=== PATIENT | male | born 1990 | race African-American/Black ===

== ENCOUNTER 2017-08-02 03:22 | Emergency (ER) | payer SELFPAY ==
[~2017-08-02] VITALS: Ht 185.4 cm; Wt 73.0 kg
[2017-08-02 03:22] VITALS: BP 121/75; PULSE 98; RESP 16; TEMP 100.4; O2SAT 98
[~2017-08-02 03:22] MED LIST: ALBU17I INH; PRED20 PO; ZITH250T PO
[2017-08-02] MEDS ORDERED: IBUPROFEN 800 MG TAB PO ONE (03:45)
--- NOTE | 2017-08-02 03:45 | PD ---
HPI Chief Complaint: ENT Complaint Time Seen by Provider: 03:30 Travel History International Travel<30 days: No Contact w/Intl Traveler<30days: No Traveled to known affect area: No History of Present Illness HPI Patient comes in for evaluation of sore throat that began yesterday morning. Patient states he has been taking NyQuil and Aleve for symptomatic relief last dose around 1300 yesterday. Patient's pain is worse with swallowing. Denies any radiation of pain. Describes pain as burning in nature. Denies any nausea , vomiting, diarrhea, chest pain, shortness of breath, loss or change in bowel or bladder, cough, or abdominal pain. 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 [facility] Past Medical History Asthma: Yes Diminished Hearing: No Immunizations Current: Yes Past Surgical History Surgical History: No Previous Surgery Social History Alcohol Use: No Tobacco Use: No Substance Use: No Allergies-Medications (Allergen,Severity, Reaction): Coded Allergies: shellfish derived (Unverified Allergy, Mild, 08/02/17) Reported Meds & Prescriptions Reported Meds & Active Scripts Active Amoxicillin 875 Mg Tab 875 Mg PO BID 10 Days Review of Systems Except as stated in HPI: all other systems reviewed are Neg Physical Exam Narrative GENERAL: Well-developed, well nourished, in no acute distress, and non-ill appearing. SKIN: Focused skin assessment warm and dry. HEAD: Atraumatic. Normocephalic. EYES: Pupils equal and round. EOMI. No scleral icterus. No injection or drainage. ENT: No nasal bleeding or discharge. Mucous membranes pink and moist. Tympanic membranes pearly olivas bilaterally. Posterior pharynx erythematous without exudate. Uvula is midline. Patient swallowing saliva and speaking in full sentences without difficulty. Tonsils are slightly swollen. NECK: Trachea midline. No cervical lymphadenopathy. Supple. No nuclear rigidity. CARDIOVASCULAR: Regular rate and rhythm. No murmur appreciated. RESPIRATORY: No accessory muscle use. No respiratory distress. Clear to auscultation. Breath sounds equal bilaterally. MUSCULOSKELETAL: No obvious deformities. No clubbing. No cyanosis. No edema. Full range of motion. NEUROLOGICAL: Awake and alert. No obvious cranial nerve deficits. Motor grossly within normal limits. Normal speech. PSYCHIATRIC: Appropriate mood and affect; insight and judgment normal. Data Data Last Documented VS Vital Signs Date Time Temp Pulse Resp B/P (MAP) Pulse Ox O2 Delivery O2 Flow Rate FiO2 08/02/17 03:22 100.4 98 16 121/75 (90) 98 Room Air Orders Orders Group A Rapid Strep Screen (08/02/17 03:34) Influenzae A/B Antigen (08/02/17 03:34) Ibuprofen (Motrin) (08/02/17 03:45) Strep Culture (Group A) (08/02/17 03:40) Ed Discharge Order (08/02/17 04:16) MDM Medical Decision Making Medical Screen Exam Complete: Yes Emergency Medical Condition: Yes Differential Diagnosis Strep pharyngitis, viral pharyngitis, influenza, tonsillitis, viral syndrome Narrative Course The patient is tolerating fluids and is well hydrated. No clinical evidence by history or evaluation to suspect meningitis and/or sepsis. There was no evidence to suggest peritonsillar abscess or retropharyngeal abscess. I discussed with the patient, diagnosis, plan of care and to follow up with the patients primary physician. The patient was given antibiotics. The patient was instructed to return if the worsens in anyway, especially if not tolerating fluids, increased pain or swelling, difficulty swallowing or breathing, or as needed. The patient agreed with plan. Patient in no obvious distress upon re-evaluation. All pertinent laboratory result(s) discussed with patient. Patient was asked if they wanted to speak to my attending, which the patient did not wish to do at this time. Any questions/ concerns in reference to patient diagnosis/condition discussed and clarified prior to patient's discharge. Reinforced sheer importance of close follow up with patient's primary physician or primary care clinic. Instructed patient to return to ED immediately, if symptoms return/worsen. Patient showed understanding of above instructions. Further instructions and recommendations were detailed in discharge paperwork. Patient ambulated without difficulty out of ED at discharge. Diagnosis Primary Impression: Tonsillitis Referrals: [facility] Patient Instructions: General Instructions, Tonsillitis (DC) Additional Instructions: Follow-up with your primary care physician in 3-5 days for reevaluation. Take all medication as prescribed. Use [id number] Tylenol and/or ibuprofen as needed for pain and/or fevers. Follow instructions on the packaging. Drink plenty of nonalcoholic and non-caffeinated fluids. Return to the emergency department if symptoms get worse. Med/Other Pt SpecificInfo: Prescription(s) given Scripts Amoxicillin (Amoxicillin) 875 Mg Tab 875 MG PO BID for Infection for 10 Days, #20 TAB 0 Refills Prov: Aisha Echevarria DO 08/02/17 Disposition: 01 DISCHARGE HOME Condition: Stable Salomon Jaramillo Aug 02, 2017 03:45
[2017-08-02] MEDS ORDERED: AMOX875T PO (04:16)
== END 2017-08-02 04:44 | disposition home or self-care (01) ==
LOC: NEPD 03:22
DX: J03.90 Acute tonsillitis, unspecified (principal); J45.909 Unspecified asthma, uncomplicated
CPT/HCPCS: 87081; 87804; 87880; 99284

== ENCOUNTER 2017-11-07 19:23 | Observation (INO) | payer OTHER ==
[~2017-11-07] VITALS: Ht 188 cm; Wt 75.0 kg
[~2017-11-07 19:23] MED LIST changes: -ALBU17I INH; +AMOX875T PO; -PRED20 PO; -ZITH250T PO
[2017-11-07 19:36] VITALS: BP 110/63; PULSE 123; RESP 18; TEMP 98.5; O2SAT 97
[2017-11-07 19:57] VITALS: O2SAT 97
[2017-11-07] MEDS ORDERED: methylPREDNISolone SOD SUCC 125 MG/2 ML VIAL IV PUSH ONE (20:00)
[2017-11-07] MEDS ORDERED: SODIUM CHLORIDE 0.9% FLUSH 10 ML FLUSH IVF PRN (20:00)
[2017-11-07] MEDS ORDERED: RESP: BUDESONIDE 0.5 MG/2 ML NEB NEB ONE (20:00)
[2017-11-07] MEDS: RESP: ALBUTEROL 2.5 MG/IPRATROPIUM 0.5 MG NEB (SCH) INH ×3 (20:01→21:40)
--- NOTE | 2017-11-07 20:01 | PD ---
HPI Chief Complaint: Respiratory Symptoms Time Seen by Provider: 19:42 Travel History International Travel<30 days: No Contact w/Intl Traveler<30days: No Traveled to known affect area: No History of Present Illness HPI Patient is a 26-year-old male presenting to the emergency department for evaluation of shortness of breath and wheezing. Patient reports a history of asthma, and he states his inhaler is not working. Symptoms started abruptly, symptom severity is moderate to severe. There are no alleviating factors. Patient denies any fevers, chills, chest pain, abdominal pain, nausea or vomiting. He does report that he coughed excessively earlier which caused him to vomit. Patient states that he was hospitalized once as a child due to his asthma but not since that time. He was feeling well prior to the asthma attack this morning. He does report nasal congestion. [facility] Past Medical History Asthma: Yes Diminished Hearing: No Immunizations Current: Yes Tetanus Vaccination: Unknown Influenza Vaccination: No Past Surgical History Other Surgery: Yes (as a child "he does not know") Social History Alcohol Use: Yes (once a week) Tobacco Use: Yes Substance Use: No Allergies-Medications (Allergen,Severity, Reaction): Coded Allergies: shellfish derived (Unverified Allergy, Mild, 11/07/17) Reported Meds & Prescriptions Reported Meds & Active Scripts Active Review of Systems Except as stated in HPI: all other systems reviewed are Neg General / Constitutional: No: Fever, Chills HENT: Positive: Congestion Respiratory: Positive: Cough, Shortness of Breath, Wheezing Physical Exam Narrative GENERAL: Well-developed, well-nourished, alert -Welsh male. Appears uncomfortable, no acute distress. SKIN: Warm and dry. HEAD: Atraumatic. Normocephalic. EYES: Pupils equal and round. No scleral icterus. No injection or drainage. ENT: No nasal bleeding or discharge. Mucous membranes pink and moist. NECK: Trachea midline. No JVD. CARDIOVASCULAR: Tachycardic RESPIRATORY: Tachypneic, wheezing throughout lung khoury. Decreased breath sounds at bases. GASTROINTESTINAL: Abdomen soft, non-tender, nondistended. Hepatic and splenic margins not palpable. MUSCULOSKELETAL: Extremities without clubbing, cyanosis, or edema. No obvious deformities. NEUROLOGICAL: Awake and alert. No obvious cranial nerve deficits. Motor grossly within normal limits. Five out of 5 muscle strength in the arms and legs. Normal speech. PSYCHIATRIC: Appropriate mood and affect; insight and judgment normal. Data Data Last Documented VS Vital Signs Date Time Temp Pulse Resp B/P (MAP) Pulse Ox O2 Delivery O2 Flow Rate FiO2 11/07/17 21:58 111 15 97 Room Air 11/07/17 19:36 98.5 110/63 (79) Orders Orders Ecg Monitoring (11/07/17 19:46) Iv Access Insert/Monitor (11/07/17 19:46) Oximetry (11/07/17 19:46) Oxygen Administration (11/07/17 19:46) Methylprednisolone So Succ Inj (Solumedr (11/07/17 20:00) Albuterol-Ipratropium Neb (Duoneb Neb) (11/07/17 20:00) Sodium Chloride 0.9% Flush (Ns Flush) (11/07/17 20:00) Budesonide Neb (Pulmicort Respule Neb) (11/07/17 20:00) Albuterol-Ipratropium Neb (Duoneb Neb) (11/07/17 20:45) Complete Blood Count With Diff (11/07/17 22:48) Comprehensive Metabolic Panel (11/07/17 22:48) Influenzae A/B Antigen (11/07/17 22:53) Admit Order (Ed Use Only) (11/07/17 22:53) Place In Observation (11/07/17 ) Vital Signs (Adult) Q4H (11/07/17 22:54) Activity Oob Ad Mira (11/07/17 22:54) Intake + Output NICOLAS.QSHIFT (11/07/17 22:54) Diet Regular Basic (11/08/17 Breakfast) Sodium Chloride 0.9% Flush (Ns Flush) (11/07/17 23:00) Sodium Chloride 0.9% Flush (Ns Flush) (11/08/17 09:00) Acetaminophen (Tylenol) (11/07/17 23:00) Ondansetron Inj (Zofran Inj) (11/07/17 23:00) Case Management Consult (11/07/17 22:54) Scd Bilateral/Knee High NICOLAS.BID (11/07/17 22:54) Naloxone Inj (Narcan Inj) (11/07/17 23:00) Albuterol-Ipratropium Neb (Duoneb Neb) (11/08/17 00:00) Albuterol-Ipratropium Neb (Duoneb Neb) (11/07/17 23:00) Methylprednisolone So Succ Inj (Solumedr (11/08/17 02:00) MDM Medical Decision Making Medical Screen Exam Complete: Yes Emergency Medical Condition: Yes Interpretation(s) Vital Signs Date Time Temp Pulse Resp B/P (MAP) Pulse Ox O2 Delivery O2 Flow Rate FiO2 11/07/17 19:36 98.5 123 18 110/63 (79) 97 Differential Diagnosis Asthma exacerbation versus bronchitis versus pneumonia versus other Narrative Course Patient is a 26-year-old male presenting with 1 day of wheezing and increasing shortness of breath secondary to an asthma attack which is unrelieved with his normal inhaler. Patient was tachycardic and tachypneic on arrival. Imaging and nebulizer treatments ordered and pending. Patient was placed on O2 at 2 L, when he presented to the room his oxygen saturation was 89% on room air. Pt initially refised CXR Patient received a total of 5 duo nebs, he continued to be wheezing and short of breath with any exertion. Patient will be admitted with an acute exacerbation of asthma. Discussed with Dr. Lanza who accepted admit. He requested influenza, this has been ordered. Pt initially didn't want to stay. He was ambulated around ED, he became SOB and tachypneic. He then realized he would benefit from staying. He has also agreed to CXR at this time. Diagnosis Primary Impression: Asthma exacerbation Qualified Codes: J45.901 - Unspecified asthma with (acute) exacerbation Admitting Information Admitting Physician Requests: Admit Condition: Stable Selam Mai Nov 07, 2017 20:01
[2017-11-07 21:58] VITALS: PULSE 111; RESP 15; O2SAT 97
[2017-11-07] MEDS ORDERED: RESP: ALBUTEROL 2.5 MG/IPRATROPIUM 0.5 MG NEB (PRN) NEB (23:00)
[2017-11-07] MEDS ORDERED: ACETAMINOPHEN 325 MG TAB PO PRN (23:00)
[2017-11-07] MEDS ORDERED: ONDANSETRON HCL 4 MG/2 ML VIAL IVP PRN (23:00)
[2017-11-07] MEDS ORDERED: NALOXONE HCL 0.4 MG/ML AMP IV PUSH PRN (23:00)
[2017-11-07] MEDS ORDERED: SODIUM CHLORIDE 0.9% FLUSH 10 ML FLUSH IV FLUSH PRN (23:00)
[2017-11-07] MEDS: RESP: ALBUTEROL 2.5 MG/IPRATROPIUM 0.5 MG NEB (SCH) NEB (23:11)
[2017-11-07 23:12] VITALS: O2SAT 97
--- NOTE | 2017-11-07 23:21 | HHI.HP ---
[facility] No Primary Care Physician Admission Diagnosis ASTHMA EXACERBATION Diagnoses: Chief Complaint: short of breath Travel History International Travel<30 Days: No Contact w/Intl Traveler <30 Da: No Traveled to Known Affected Are: No History of Present Illness 26 y/o male with a history of asthma presented to the ED with complaints of shortness of breath and wheezing today. He states at 11am he used his inhaler and nebulizer at home but had no relief, and he continued to have dyspnea. He denies any associated chest pain, fevers or chills. He did vomit once earlier today from coughing so hard. Denies any further nausea or vomiting. Review of Systems Except as stated in HPI: all other systems reviewed are Neg Past Family Social History Past Medical History Asthma Past Surgical History Intubated as a baby but unsure what else Reported Medications Reported Meds & Active Scripts Active Allergies: Coded Allergies: shellfish derived (Unverified Allergy, Mild, 11/07/17) Active Ordered Medications Current Medications Medications (Trade) Dose Ordered Sig/Yani Route Start Time Stop Time Status Last Admin (NS Flush) 2 ml UNSCH PRN IV FLUSH 11/07/17 23:00 (NS Flush) 2 ml BID IV FLUSH 11/08/17 09:00 (Tylenol) 650 mg Q4H PRN PO 11/07/17 23:00 (Zofran Inj) 4 mg Q6H PRN IVP 11/07/17 23:00 (Narcan Inj) 0.4 mg UNSCH PRN IV PUSH 11/07/17 23:00 (Duoneb Neb) 1 ampule Q4HR NEB NEB 11/08/17 00:00 11/07/17 23:11 (Duoneb Neb) 1 ampule Q2HR NEB PRN NEB 11/07/17 23:00 (SoluMEDROL INJ) 60 mg Q6H IV PUSH 11/08/17 02:00 Family History Mom: Asthma Social History Tobacco use: Occasionally Alcohol use: Rarely Physical Exam Vital Signs Vital Signs Date Time Temp Pulse Resp B/P (MAP) Pulse Ox O2 Delivery O2 Flow Rate FiO2 11/07/17 21:58 111 15 97 Room Air 11/07/17 19:57 Aerosol Mask 11/07/17 19:57 97 Aerosol Mask 11/07/17 19:36 98.5 123 18 110/63 (79) 97 Physical Exam GENERAL: This is a well-nourished, well-developed patient, in no apparent distress. SKIN: No rashes, ecchymoses or lesions. Cool and dry. HEAD: Atraumatic. Normocephalic. EYES: Pupils equal round and reactive. ENT: Nose without bleeding, purulent drainage or septal hematoma. Airway patent. NECK: Trachea midline. No JVD or lymphadenopathy. CARDIOVASCULAR: Regular rate and rhythm without murmurs, gallops, or rubs. RESPIRATORY: Wheezing throughout all lung khoury GASTROINTESTINAL: Abdomen soft, non-tender, nondistended. MUSCULOSKELETAL: Extremities without clubbing, cyanosis, or edema. No calf tenderness. NEUROLOGICAL: Awake and alert. Motor and sensory grossly within normal limits.Normal speech. Caprini VTE Risk Assessment Caprini VTE Risk Assessment: No/Low Risk (score <= 1) Caprini Risk Assessment Model Point Value = 1 Point Value = 2 Point Value = 3 Point Value = 5 Age 41-60 Minor surgery BMI > 25 kg/m2 Swollen legs Varicose veins or History of unexplained or recurrent spontaneous Oral contraceptives or hormone replacement Sepsis (< 1 month) Serious lung disease, including pneumonia (< 1 month) Abnormal pulmonary function Acute myocardial infarction Congestive heart failure (< 1 month) History of inflammatory bowel disease Medical patient at bed rest Age 61-74 Arthroscopic surgery Major open surgery (> 45 min) Laparoscopic surgery (> 45 min) Malignancy Confined to bed (> 72 hours) Immobilizing plaster cast Central venous access Age >= 75 History of VTE Family history of VTE Factor V Leiden Prothrombin [id number] Lupus anticoagulant Anticardiolipin antibodies Elevated serum homocysteine Heparin-induced thrombocytopenia Other congenital or acquired thrombophilia Stroke (< 1 month) Elective arthroplasty Hip, pelvis, or leg fracture Acute spinal cord injury (< 1 month) Prophylaxis Regimen Total Risk Factor Score Risk Level Prophylaxis Regimen 0-1 Low Early ambulation 2 Moderate Order ONE of the following: *Sequential Compression Device (SCD) *Heparin 5000 units SQ BID 3-4 Higher Order ONE of the following medications: *Heparin 5000 units SQ TID *Enoxaparin/Lovenox 40 mg SQ daily (WT < 150 kg, CrCl > 30 mL/min) *Enoxaparin/Lovenox 30 mg SQ daily (WT < 150 kg, CrCl > 10-29 mL/min) *Enoxaparin/Lovenox 30 mg SQ BID (WT < 150 kg, CrCl > 30 mL/min) AND/OR *Sequential Compression Device (SCD) 5 or more Highest Order ONE of the following medications: *Heparin 5000 units SQ TID (Preferred with Epidurals) *Enoxaparin/Lovenox 40 mg SQ daily (WT < 150 kg, CrCl > 30 mL/min) *Enoxaparin/Lovenox 30 mg SQ daily (WT < 150 kg, CrCl > 10-29 mL/min) *Enoxaparin/Lovenox 30 mg SQ BID (WT < 150 kg, CrCl > 30 mL/min) AND *Sequential Compression Device (SCD) Assessment and Plan Problem List: (1) Asthma exacerbation ICD Code: J45.901 - Unspecified asthma with (acute) exacerbation Status: Acute Assessment and Plan 26 y/o male with a history of asthma presented to the ED with complaints of shortness of breath and wheezing today. Acute asthma exacerbation, 89% on rm air Chest x ray reviewed and unremarkable -Duonebs scheduled and prn -Solumedrol IV Q6hr -Check flu Hypokalemia, potassium 3.3 -Supplementation ordered, trend potassium and replace as needed DVT prophylaxis: SCDs Discussed Condition With Patient, and RN Problem Qualifiers (1) Asthma exacerbation: Qualified Codes: J45.901 - Unspecified asthma with (acute) exacerbation Bere Bridges Nov 07, 2017 23:21
--- NOTE | 2017-11-07 23:23 | PD ---
Physical Exam Date Seen by Provider: Nov 07, 2017 Time Seen by Provider: 22:00 Narrative I, Dr. Bran, have reviewed the advance practice practitioner's documentation and am in agreement, met with the patient face to face, made the diagnosis, and the medical decision making was done by me. *My assessment and Findings: Patient seen with PA, please see PA note for further details. He is here for wheezing, asthma exacerbation, was treated in the ER with Solu-Medrol, multiple multiple nebulizers. He had initially refused to get chest x-ray done, but one was done since his breathing issues are not improving. After 5 nebulizers without significant improvement, patient is admitted for further treatment for asthma exacerbation. Case is discussed with hospitalist admission service for admission. Data Data Last Documented VS Vital Signs Date Time Temp Pulse Resp B/P (MAP) Pulse Ox O2 Delivery O2 Flow Rate FiO2 11/07/17 21:58 111 15 97 Room Air 11/07/17 19:36 98.5 110/63 (79) Orders Orders Ecg Monitoring (11/07/17 19:46) Iv Access Insert/Monitor (11/07/17 19:46) Oximetry (11/07/17 19:46) Oxygen Administration (11/07/17 19:46) Methylprednisolone So Succ Inj (Solumedr (11/07/17 20:00) Albuterol-Ipratropium Neb (Duoneb Neb) (11/07/17 20:00) Sodium Chloride 0.9% Flush (Ns Flush) (11/07/17 20:00) Budesonide Neb (Pulmicort Respule Neb) (11/07/17 20:00) Albuterol-Ipratropium Neb (Duoneb Neb) (11/07/17 20:45) Complete Blood Count With Diff (11/07/17 22:48) Comprehensive Metabolic Panel (11/07/17 22:48) Influenzae A/B Antigen (11/07/17 22:53) Admit Order (Ed Use Only) (11/07/17 22:53) Place In Observation (11/07/17 ) Vital Signs (Adult) Q4H (11/07/17 22:54) Activity Oob Ad Mira (11/07/17 22:54) Intake + Output NICOLAS.QSHIFT (11/07/17 22:54) Diet Regular Basic (11/08/17 Breakfast) Sodium Chloride 0.9% Flush (Ns Flush) (11/07/17 23:00) Sodium Chloride 0.9% Flush (Ns Flush) (11/08/17 09:00) Acetaminophen (Tylenol) (11/07/17 23:00) Ondansetron Inj (Zofran Inj) (11/07/17 23:00) Case Management Consult (11/07/17 22:54) Scd Bilateral/Knee High NICOLAS.BID (11/07/17 22:54) Naloxone Inj (Narcan Inj) (11/07/17 23:00) Albuterol-Ipratropium Neb (Duoneb Neb) (11/08/17 00:00) Albuterol-Ipratropium Neb (Duoneb Neb) (11/07/17 23:00) Methylprednisolone So Succ Inj (Solumedr (11/08/17 02:00) MDM Medical Record Reviewed: Yes Supervised Visit with JOE: Yes Diagnosis Primary Impression: Asthma exacerbation Qualified Codes: J45.901 - Unspecified asthma with (acute) exacerbation Admitting Information Admitting Physician Requests: Admit Condition: Stable Yolanda Bran MD Nov 07, 2017 23:23
[2017-11-07 23:28] LABS: AUTOMATED NEUTROPHIL # 9.7 TH/MM3 (1.8-7.7); BASOPHIL # 0.1 TH/MM3 (0-0.2); BASOPHIL % 0.4 % (0.0-2.0); EOSINOPHIL # 0.3 TH/MM3 (0-0.4); EOSINOPHIL % 2.9 % (0.0-4.0); HEMATOCRIT 46.7 % (39.0-51.0); HEMOGLOBIN 15.3 GM/DL (13.0-17.0); LYMPH % 4.1 % (9.0-44.0); LYMPHOCYTE # 0.5 TH/MM3 (1.0-4.8); MEAN CELL VOLUME 80.5 FL (80.0-100.0); MEAN CORPUSCULAR HEMOGLOBIN 26.3 PG (27.0-34.0); MEAN CORPUSCULAR HGB CONC 32.7 % (32.0-36.0); MEAN PLATELET VOLUME 8.5 FL (7.0-11.0); MONOCYTE # 1.2 TH/MM3 (0-0.9); NEUT % 82.6 % (16.0-70.0); PLATELET COUNT 273 TH/MM3 (150-450); RED CELL DISTRIBUTION WIDTH 14.2 % (11.6-17.2); WHITE BLOOD COUNT 11.8 TH/MM3 (4.0-11.0)
--- NOTE | 2017-11-07 23:40 | RADRPT ---
EXAM DATE/TIME: 11/07/2017 23:28 [place] COMPARISON: No previous studies available for comparison. INDICATIONS : Wheezing. MEDICAL HISTORY : Asthma. SURGICAL HISTORY : None. ENCOUNTER: Initial ACUITY: 1 day PAIN SCORE: 0/10 LOCATION: Bilateral chest FINDINGS: A single view of the chest demonstrates the lungs to be symmetrically aerated without evidence of mas s, infiltrate or effusion. The cardiomediastinal contours are unremarkable. Osseous structures are intact. CONCLUSION: 1. No acute cardiopulmonary disease. Eric Lugo MD on November 07, 2017 at 23:39 Board Certified Radiologist. This report was verified electronically.
[2017-11-07 23:47] LABS: ALBUMIN 4.6 GM/DL (3.4-5.0); ALT (GPT) 14 U/L (12-78); AST (GOT) 18 U/L (15-37); BICARBONATE 23.6 MEQ/L (21.0-32.0); BLOOD UREA NITROGEN 6 MG/DL (7-18); CALCIUM 9.1 MG/DL (8.5-10.1); CHLORIDE 104 MEQ/L (98-107); CREATININE 1.12 MG/DL (0.60-1.30); GLOMERULAR FILTRATION RATE 98 ML/MIN (>89); GLUCOSE,RANDOM 105 MG/DL (74-106); SODIUM (NA) 141 MEQ/L (136-145)
[2017-11-07 23:48] LABS: ALKALINE PHOSPHATASE 63 U/L (45-117); TOTAL BILIRUBIN ADULT 0.9 MG/DL (0.2-1.0); TOTAL PROTEIN 8.1 GM/DL (6.4-8.2)
[2017-11-08] MEDS ORDERED: POTASSIUM CHLORIDE 20 MEQ CONTROLLED RELEASE TAB PO ONE
[2017-11-08 00:04] VITALS: BP 125/59; PULSE 114; RESP 15; TEMP 98.1; O2SAT 93
[2017-11-08] MEDS ORDERED: MELATONIN 5 MG TAB PO ONE (01:45)
[2017-11-08] MEDS: methylPREDNISolone SOD SUCC 125 MG/2 ML VIAL IV PUSH SCH ×2 (01:48→08:00)
[2017-11-08 03:02] VITALS: O2SAT 96
[2017-11-08] MEDS: RESP: ALBUTEROL 2.5 MG/IPRATROPIUM 0.5 MG NEB (SCH) NEB ×3 (03:02→11:09)
[2017-11-08 03:26] VITALS: BP 123/66; PULSE 98; RESP 17; TEMP 98.3; O2SAT 93
[2017-11-08 07:58] VITALS: BP 136/68; PULSE 18; RESP 18; TEMP 98; O2SAT 95
[2017-11-08] MEDS ORDERED: SODIUM CHLORIDE 0.9% FLUSH 10 ML FLUSH IV FLUSH SCH (09:00)
--- NOTE | 2017-11-08 11:33 | HHI.PR ---
Subjective Remarks 26 y/o male with a history of asthma presented to the ED with complaints of shortness of breath and wheezing today. He states at 11am he used his inhaler and nebulizer at home but had no relief, and he continued to have dyspnea. He denies any associated chest pain, fevers or chills. He did vomit once earlier today from coughing so hard. Denies any further nausea or vomiting. 3-1 patient states he is feeling much better than yesterday. States he has a nebulizer at home Wants to go home Feels like he would do better at home than staying here States he has money to buy medications to treat his asthma exacerbation We will therefore discharge him to home today Switch to p.o. steroids P.o. Mucinex Nebulized treatments and Symbicort Objective Vitals Vital Signs Date Time Temp Pulse Resp B/P (MAP) Pulse Ox O2 Delivery O2 Flow Rate FiO2 11/08/17 07:58 98.0 18 18 136/68 (90) 95 11/08/17 03:26 98.3 98 17 123/66 (85) 93 11/08/17 03:02 96 11/08/17 00:04 98.1 114 15 125/59 (81) 93 11/07/17 23:12 97 Nasal Cannula 3.00 11/07/17 21:58 111 15 97 Room Air 11/07/17 19:57 Aerosol Mask 11/07/17 19:57 97 Aerosol Mask 11/07/17 19:36 98.5 123 18 110/63 (79) 97 Result Diagram: 11/07/17 2303 11/07/17 2305 Other Results Laboratory Tests Test 11/07/17 23:05 White Blood Count 11.8 TH/MM3 Red Blood Count 5.80 MIL/MM3 Hemoglobin 15.3 GM/DL Hematocrit 46.7 % Mean Corpuscular Volume 80.5 FL Mean Corpuscular Hemoglobin 26.3 PG Mean Corpuscular Hemoglobin Concent 32.7 % Red Cell Distribution Width 14.2 % Platelet Count 273 TH/MM3 Mean Platelet Volume 8.5 FL Neutrophils (%) (Auto) 82.6 % Lymphocytes (%) (Auto) 4.1 % Monocytes (%) (Auto) 10.0 % Eosinophils (%) (Auto) 2.9 % Basophils (%) (Auto) 0.4 % Neutrophils # (Auto) 9.7 TH/MM3 Lymphocytes # (Auto) 0.5 TH/MM3 Monocytes # (Auto) 1.2 TH/MM3 Eosinophils # (Auto) 0.3 TH/MM3 Basophils # (Auto) 0.1 TH/MM3 CBC Comment DIFF FINAL Differential Comment Blood Urea Nitrogen 6 MG/DL Creatinine 1.12 MG/DL Random Glucose 105 MG/DL Total Protein 8.1 GM/DL Albumin 4.6 GM/DL Calcium Level 9.1 MG/DL Alkaline Phosphatase 63 U/L Aspartate Amino Transf (AST/SGOT) 18 U/L Alanine Aminotransferase (ALT/SGPT) 14 U/L Total Bilirubin 0.9 MG/DL Sodium Level 141 MEQ/L Potassium Level 3.3 MEQ/L Chloride Level 104 MEQ/L Carbon Dioxide Level 23.6 MEQ/L Anion Gap 13 MEQ/L Estimat Glomerular Filtration Rate 98 ML/MIN Imaging Last Impressions Chest X-Ray 11/07/17 0000 Signed Impressions: Service Date/Time: Tuesday, November 07, 2017 23:28 - CONCLUSION: 1. No acute cardiopulmonary disease. Eric Lugo MD Objective Remarks GENERAL: Awake alert oriented talkative and cooperative in no acute distress -- wants to go home SKIN: Warm and dry. HEAD: Atraumatic. Normocephalic. EYES: Pupils equal and round. No scleral icterus. No injection or drainage. Extraocular muscles intact ENT: No nasal bleeding or discharge. Mucous membranes pink and moist. Tongue is midline NECK: Trachea midline. No JVD. Supple CARDIOVASCULAR: Regular rate and rhythm. S1-S2 no S3 or S4 RESPIRATORY: No accessory muscle use. Rhonchi and wheezes bilaterally. Breath sounds equal bilaterally. GASTROINTESTINAL: Abdomen soft, non-tender, nondistended. Hepatic and splenic margins not palpable. MUSCULOSKELETAL: Extremities without clubbing, cyanosis, or edema. No obvious deformities. NEUROLOGICAL: Awake and alert. No obvious cranial nerve deficits. Motor grossly within normal limits. Five out of 5 muscle strength in the arms and legs. Normal speech. PSYCHIATRIC: Appropriate mood and affect; insight and judgment normal. Medications and IVs Current Medications Methylprednisolone Sodium Succinate (SoluMEDROL INJ) 125 mg ONCE ONCE IV PUSH Last administered on 11/07/17at 19:53; Start 11/07/17 at 20:00; Stop 11/07/17 at 20:01; Status DC Albuterol/ Ipratropium (Duoneb Neb) 1 ampule Q15M INH Last administered on 11/07at 20:02; Start 11/07/17 at 20:00; Stop 11/07/17 at 20:31; Status DC Sodium Chloride (NS Flush) 2 ml UNSCH PRN IVF FLUSH AFTER USING IV ACCESS; Start 11/07/17 at 20:00; Stop 11/07/17 at 23:03; Status DC Budesonide (Pulmicort Respule Neb) 0.5 mg ONCE ONCE NEB Last administered on at 20:01; Start 11/07/17 at 20:00; Stop 11/07/17 at 20:01; Status DC Albuterol/ Ipratropium (Duoneb Neb) 1 ampule Q15M INH Last administered on 11/07at 21:40; Start 11/07/17 at 20:45; Stop 11/07/17 at 21:01; Status DC Sodium Chloride (NS Flush) 2 ml UNSCH PRN IV FLUSH FLUSH AFTER USING IV ACCESS ; Start 11/07/17 at 23:00 Sodium Chloride (NS Flush) 2 ml BID IV FLUSH ; Start 11/08/17 at 09:00 Acetaminophen (Tylenol) 650 mg Q4H PRN PO TEMP > 100.4; Start 11/07/17 at 23:00 Ondansetron HCl (Zofran Inj) 4 mg Q6H PRN IVP NAUSEA OR VOMITING; Start at 23:00 Naloxone HCl (Narcan Inj) 0.4 mg UNSCH PRN IV PUSH SEE LABEL COMMENTS; Start at 23:00 Albuterol/ Ipratropium (Duoneb Neb) 1 ampule Q4HR NEB NEB Last administered on 11/08/17at 11:09; Start 11/08/17 at 00:00 Albuterol/ Ipratropium (Duoneb Neb) 1 ampule Q2HR NEB PRN NEB SHORTNESS OF BREATH; Start 11/07/17 at 23:00 Methylprednisolone Sodium Succinate (SoluMEDROL INJ) 60 mg Q6H IV PUSH Last administered on 11/08/17at 01:48; Start 11/08/17 at 02:00 Potassium Chloride (KCl) 20 meq ONCE ONCE PO Last administered on 11/08/17at 00: 19; Start 11/08/17 at 00:00; Stop 11/08/17 at 00:01; Status DC Melatonin (Melatonin) 5 mg ONCE ONCE PO Last administered on 11/08/17at 01:47; Start 11/08/17 at 01:45; Stop 11/08/17 at 01:46; Status DC A/P Problem List: (1) Asthma exacerbation ICD Code: J45.901 - Unspecified asthma with (acute) exacerbation Status: Acute Assessment and Plan Assessment and Plan 26 y/o male with a history of asthma presented to the ED with complaints of shortness of breath and wheezing today. Acute asthma exacerbation, 89% on rm air Chest x ray reviewed and unremarkable -Duonebs scheduled and prn -Solumedrol IV Q6hr -WANTS TO GO HOME -SWITCH TO PO MEDS Hypokalemia, potassium 3.3 -Supplementation ordered, trend potassium and replace as needed DVT prophylaxis: SCDs RECOMMEND SMOKING CESSATION DC TO HOME Discharge Planning DC TO HOME TODAY Problem Qualifiers (1) Asthma exacerbation: Qualified Codes: J45.901 - Unspecified asthma with (acute) exacerbation Navi Jorge DO Nov 08, 2017 11:33
[2017-11-08] MEDS ORDERED: MEDR4PAK PO (11:39)
[2017-11-08] MEDS ORDERED: ALBUAER3 INH (11:39)
[2017-11-08] MEDS ORDERED: HUMIBIDDM PO (11:39)
[2017-11-08] MEDS ORDERED: IPRASOL INH (11:39)
[2017-11-08] MEDS ORDERED: ADVA250A INH (11:39)
--- NOTE | 2017-11-08 11:41 | HHI.DS ---
Discharge Summary Admission Date Nov 07, 2017 at 22:57 Discharge Date: Nov 08, 2017 Admitting Diagnosis ASTHMA EXACERBATION (1) Asthma exacerbation ICD Code: J45.901 - Unspecified asthma with (acute) exacerbation Diagnosis: Principal Status: Acute (2) Tobacco abuse ICD Code: Z72.0 - Tobacco use Diagnosis: Secondary (3) Hypokalemia ICD Code: E87.6 - Hypokalemia Diagnosis: Secondary Procedures NONE Brief History - From Admission 26 y/o male with a history of asthma presented to the ED with complaints of shortness of breath and wheezing today. He states at 11am he used his inhaler and nebulizer at home but had no relief, and he continued to have dyspnea. He denies any associated chest pain, fevers or chills. He did vomit once earlier today from coughing so hard. Denies any further nausea or vomiting. CBC/BMP: 11/07/17 2305 11/07/17 230 Significant Findings Laboratory Tests Test 11/07/17 23:05 White Blood Count 11.8 TH/MM3 (4.0-11.0) Mean Corpuscular Hemoglobin 26.3 PG (27.0-34.0) Neutrophils (%) (Auto) 82.6 % (16.0-70.0) Lymphocytes (%) (Auto) 4.1 % (9.0-44.0) Monocytes (%) (Auto) 10.0 % (0.0-8.0) Neutrophils # (Auto) 9.7 TH/MM3 (1.8-7.7) Lymphocytes # (Auto) 0.5 TH/MM3 (1.0-4.8) Monocytes # (Auto) 1.2 TH/MM3 (0-0.9) Blood Urea Nitrogen 6 MG/DL (7-18) Potassium Level 3.3 MEQ/L (3.5-5.1) PE at Discharge GENERAL: Awake alert oriented talkative and cooperative in no acute distress -- wants to go home SKIN: Warm and dry. HEAD: Atraumatic. Normocephalic. EYES: Pupils equal and round. No scleral icterus. No injection or drainage. Extraocular muscles intact ENT: No nasal bleeding or discharge. Mucous membranes pink and moist. Tongue is midline NECK: Trachea midline. No JVD. Supple CARDIOVASCULAR: Regular rate and rhythm. S1-S2 no S3 or S4 RESPIRATORY: No accessory muscle use. Rhonchi and wheezes bilaterally. Breath sounds equal bilaterally. GASTROINTESTINAL: Abdomen soft, non-tender, nondistended. Hepatic and splenic margins not palpable. MUSCULOSKELETAL: Extremities without clubbing, cyanosis, or edema. No obvious deformities. NEUROLOGICAL: Awake and alert. No obvious cranial nerve deficits. Motor grossly within normal limits. Five out of 5 muscle strength in the arms and legs. Normal speech. PSYCHIATRIC: Appropriate mood and affect; insight and judgment normal. Hospital Course 26 y/o male with a history of asthma presented to the ED with complaints of shortness of breath and wheezing today. He states at 11am he used his inhaler and nebulizer at home but had no relief, and he continued to have dyspnea. He denies any associated chest pain, fevers or chills. He did vomit once earlier today from coughing so hard. Denies any further nausea or vomiting. 3-1 patient states he is feeling much better than yesterday. States he has a nebulizer at home Wants to go home Feels like he would do better at home than staying here States he has money to buy medications to treat his asthma exacerbation We will therefore discharge him to home today Switch to p.o. steroids P.o. Mucinex Nebulized treatments and Symbicort Pt Condition on Discharge: Good Discharge Disposition: Discharge Home Discharge Time: <= 30 minutes Discharge Instructions DIET: Follow Instructions for: As Tolerated, No Restrictions Speech Therapy-Diet Recommends: Regular Activities you can perform: Regular-No Restrictions Follow up Referrals: PCP Follow-up - 1 Week New Medications: Albuterol 8.5 GM Inh (Proair Hfa 8.5 GM Inh) 90 Mcg/Act Aer 2 PUFF INH Q4-6H PRN for SHORTNESS OF BREATH, #1 INHALER 0 Refills 108 mcg/actuation Dextromethorphan-Guaifenesin (Mucinex DM) 30-600 Mg Tab 1 TAB PO BID PRN for CHEST CONGESTION AND/OR COUGH for 30 Days, #60 TAB 0 Refills Fluticasone-Salmeterol Inh (Advair Diskus Inh) 250-50 Mcg/Blist Aer 1 PUFF INH BID for Asthma Management, #1 INHALER 0 Refills Rinse mouth after use. Ipratropium-Albuterol Neb (Duoneb) 0.5-2.5 Mg/3 Ml Neb 1 NEBULE INH Q4HR NEB for SHORTNESS OF BREATH, #120 NEBULE 0 Refills Methylprednisolone Dosepak (Medrol Dosepak) 4 Mg Dspk 4 MG PO DIRECTED, #1 DSPK 0 Refills Per Pharmacist direction Navi Jorge DO Nov 08, 2017 11:41
== END 2017-11-08 14:38 | disposition home or self-care (01) ==
LOC: NEPD 19:23 → UNDOADMIN 22:55 → NEDA 22:55 → INTOOBSV 22:57 → NEPHCDU 23:35
PROVIDERS: ADMIT Hospitalist; ATTEND Hospitalist
DX: J45.901 Unspecified asthma with (acute) exacerbation (principal); E87.6 Hypokalemia; F17.200 Nicotine dependence, unspecified, uncomplicated
CPT/HCPCS: 71045; 80053; 85025; 87804; 94640; 94664; 96374; 96376; 99285; G0378; J2930; J7626